=== PATIENT | female | born 1990 | race Caucasian/White ===

== ENCOUNTER 2019-02-18 23:41 | Emergency (ER) | payer BC ==
[~2019-02-18] VITALS: Ht 165 cm; Wt 92.0 kg
[2019-02-18] MEDS ORDERED: ESCI10TA55 PO (23:57)
--- NOTE | 2019-02-19 00:11 | ED Abdominal Pain ---
General Chief Complaint: Abdominal/GI Problems Stated Complaint: RIGHT SIDE PAIN Nursing Triage Note: Pt ambulates to RM 7 with c/o RLQ pain x 3 days. Pt reports nausea, no vomiting. Pt denies fever/chills. Pt states she hasn't taken any meds to relief the pain. Sepsis Screen: No Definite Risk Source of Information: Patient, Other (fiance) Exam Limitations: No Limitations History of Present Illness Date Seen by Provider: Feb 19, 2019 Time Seen by Provider: 00:01 Initial Comments Patient presents to ER by private conveyance with chief complaint of pain in the right flank starting on Friday, 4 days ago. [facility] lab and ultrasound but she has not received results yet. She has no history of abdominal surgeries. She's having nausea and some vomiting earlier in the week but no vomiting now just nausea. She has 6 out of 10 pain constant right lower quadrant and right flank. No dysuria or hematuria. No history of kidney stones. No trauma. Not on control. Does not remember doing anything particular strenuous that caused the pain. It is worse with stretching or bending. Allergies and Home Medications Allergies Coded Allergies: cephalexin (Verified Allergy, Unknown, 02/19/19) Patient Home Medication List Home Medication List Reviewed: Yes Review of Systems Review of Systems Constitutional: No chills, No diaphoresis, No fever EENTM: No Blurred Vision, No Double Vision Respiratory: Denies Cough, Denies Shortness of Air Cardiovascular: Denies Chest Pain, Denies Edema Gastrointestinal: See HPI; Denies Abdomen Distended; Abdominal Pain; Denies Constipated; Diarrhea, Nausea, Vomiting (earlier in week) Genitourinary: Denies Burning, Denies Discharge, Denies Drainage; Flank Pain Musculoskeletal: No back pain, No joint pain Skin: No pruritus, No rash All Other Systems Reviewed Negative Unless Noted: Yes Past Unepdyu-Vwgqby-Uscqkd Hx Patient Social History Alcohol Use: Denies Use Recreational Drug Use: No Smoking Status: Never a Smoker 2nd Hand Smoke Exposure: No Recent Foreign Travel: No Contact w/Someone Who Travel: No Recent Infectious Disease Expo: No Recent Hopitalizations: No Physical Abuse: No Sexual Abuse: No Mistreated: No Fear: No Seasonal Allergies Seasonal Allergies: No Past Medical History Surgeries: No Respiratory: No Cardiac: No Neurological: No Genitourinary: No Gastrointestinal: No Musculoskeletal: No Endocrine: No HEENT: No Cancer: No Psychosocial: Yes Anxiety, Depression Integumentary: No Physical Exam Vital Signs Vital Signs - First Documented 02/18/19 23:48 Temp 36.4 Pulse 82 Resp 20 B/P (MAP) 116/84 (95) Pulse Ox 100 O2 Delivery Room Air Capillary Refill : Less Than 3 Seconds Height/Weight/BMI Height: '" Weight: lbs. oz. kg; 33.00 BMI Method: General Appearance: WD/WN, mild distress HEENT: PERRL/EOMI, pharynx normal Neck: full range of motion, normal inspection Respiratory: lungs clear, normal breath sounds, no respiratory distress, no accessory muscle use Cardiovascular: normal peripheral pulses, regular rate, rhythm, no edema Peripheral Pulses: 2+ Radial Pulses (R), 2+ Radial Pulses (L) Gastrointestinal: normal bowel sounds, soft; No rebound; tenderness (over the lower right flank.), other (no tenderness over McBurney's point. No Rovsing sign, psoas sign or other mesenteric signs.) Neurologic/Psychiatric: alert, normal mood/affect, oriented x 3 Skin: normal color, warm/dry Progress/Results/Core Measures Results/Orders Lab Results Laboratory Tests Test 02/18/19 23:58 02/19/19 00:50 Range/Units White Blood Count 9.1 4.3-11.0 10^3/uL Red Blood Count 4.69 4.35-5.85 10^6/uL Hemoglobin 13.3 11.5-16.0 G/DL Hematocrit 40 35-52 % Mean Corpuscular Volume 86 80-99 FL Mean Corpuscular Hemoglobin 28 25-34 PG Mean Corpuscular Hemoglobin Concent 33 32-36 G/DL Red Cell Distribution Width 12.7 10.0-14.5 % Platelet Count 268 130-400 10^3/uL Mean Platelet Volume 9.6 7.4-10.4 FL Neutrophils (%) (Auto) 63 42-75 % Lymphocytes (%) (Auto) 32 12-44 % Monocytes (%) (Auto) 5 0-12 % Eosinophils (%) (Auto) 1 0-10 % Basophils (%) (Auto) 0 0-10 % Neutrophils # (Auto) 5.7 1.8-7.8 X 10^3 Lymphocytes # (Auto) 2.9 1.0-4.0 X 10^3 Monocytes # (Auto) 0.4 0.0-1.0 X 10^3 Eosinophils # (Auto) 0.1 0.0-0.3 10^3/uL Basophils # (Auto) 0.0 0.0-0.1 10^3/uL Sodium Level 140 135-145 MMOL/L Potassium Level 3.5 L 3.6-5.0 MMOL/L Chloride Level 104 98-107 MMOL/L Carbon Dioxide Level 24 21-32 MMOL/L Anion Gap 12 5-14 MMOL/L Blood Urea Nitrogen 9 7-18 MG/DL Creatinine 0.83 0.60-1.30 MG/DL Estimat Glomerular Filtration Rate > 60 BUN/Creatinine Ratio 11 Glucose Level 75 70-105 MG/DL Calcium Level 9.5 8.5-10.1 MG/DL Corrected Calcium 9.2 8.5-10.1 MG/DL Total Bilirubin 0.4 0.1-1.0 MG/DL Aspartate Amino Transf (AST/SGOT) 27 5-34 U/L Alanine Aminotransferase (ALT/SGPT) 41 0-55 U/L Alkaline Phosphatase 129 40-136 U/L C-Reactive Protein High Sensitivity 1.11 H 0.00-0.50 MG/DL Total Protein 8.1 6.4-8.2 GM/DL Albumin 4.4 3.2-4.5 GM/DL Urine Color YELLOW Urine Clarity SL CLOUDY Urine pH 6.0 5-9 Urine Specific [place] >=1.030 1.016-1.022 Urine Protein TRACE NEGATIVE Urine Glucose (UA) NEGATIVE NEGATIVE Urine Ketones NEGATIVE NEGATIVE Urine Nitrite NEGATIVE NEGATIVE Urine Bilirubin NEGATIVE NEGATIVE Urine Urobilinogen 0.2 < = 1.0 MG/DL Urine Leukocyte Esterase NEGATIVE NEGATIVE Urine RBC (Auto) 3+ H NEGATIVE Urine RBC TNTC H /HPF Urine WBC 0-2 /HPF Urine Squamous Epithelial Cells 2-5 /HPF Urine Crystals NONE /LPF Urine Bacteria FEW H /HPF Urine Casts NONE /LPF Urine Mucus NEGATIVE /LPF Urine Culture Indicated NO My Orders Orders - SHAWNA JUAREZ Ua Culture If Indicated (02/18/19 23:42) Urine Bedside (02/18/19 23:42) Ketorolac Injection (Toradol Injection) (02/19/19 00:15) Ondansetron Injection (Zofran Injectio (02/19/19 00:15) Cbc With Automated Diff (02/19/19 00:11) Comprehensive Metabolic Panel (02/19/19 00:11) Hs C Reactive Protein (02/19/19 00:11) Ed Iv/Invasive Line Start (02/19/19 00:14) Lactated Ringers (Lr 1000 Ml Iv Solution (02/19/19 00:14) Medications Given in ED Current Medications Medications Dose Ordered Sig/Brittany Route Start Time Stop Time Status Last Admin Dose Admin Ketorolac Tromethamine 30 mg ONCE ONCE IVP 02/19/19 00:15 02/19/19 00:16 DC 02/19/19 00:25 30 MG Lactated Ringer's 1,000 ml @ 0 mls/hr Q0M ONCE IV 02/19/19 00:14 02/19/19 00:16 DC 02/19/19 00:24 0 MLS/HR Ondansetron HCl 4 mg ONCE ONCE IVP 02/19/19 00:15 02/19/19 00:16 DC 02/19/19 00:25 4 MG Vital Signs/I&O 02/18/19 23:48 Temp 36.4 Pulse 82 Resp 20 B/P (MAP) 116/84 (95) Pulse Ox 100 O2 Delivery Room Air Blood Pressure Mean: 95 POS Progress Progress Note #1: Time: 00:14 Progress Note She's having abdominal wall pain but given her nausea and with history of vomiting, diarrhea or sick contacts at work possible she has viral gastroenteritis and colitis. She has aseptic vital signs and a benign abdominal exam. Plan to check some basic labs and urinalysis to rule out kidney stones or more significant bacterial infection. We've her some Toradol and Zofran as well as a liter of lactated Ringer's. Progress Note #2: Time: 01:31 Progress Note Pain is significantly improved. She is still having some indigestion so we'll g henry her some Pepcid. She denies any nausea. Plan for her to follow-up with primary care team today and keep the results of her ultrasound and labs from earlier in the week. If she still having significant symptoms by Friday then she needs to follow-up with primary care. Return precautions were given. Departure Impression Primary Impression: Gastroenteritis and colitis, viral Additional Impression: Acute right flank pain Disposition: HOME, SELF-CARE Condition: Stable Departure-Patient Inst. Decision time for Depature: 01:33 Referrals: [facility] (PCP/Family) Primary Care Physician Patient Instructions: Viral Gastroenteritis, Adult (DC) Add. Discharge Instructions: If you have any nausea take Zofran 1 tablet every 6 hours as needed. If you are having pain in your belly you can try an antacid such as Tums or Rolaids. You can also try Pepcid/Tagamet/Zantac once or twice a day. Today contact your primary care office during business hours and look for the results of your blood work and ultrasound performed earlier in the week. If you are still having symptoms on Friday then please follow-up with primary care for further workup. If you have intractable pain nausea vomiting or other worrisome symptoms please return to the ER for further management. All discharge instructions reviewed with patient and/or family. Voiced understanding. Scripts Ondansetron (Ondansetron Odt) 4 Mg Tab.rapdis 4 MG PO Q6H PRN for NAUSEA/VOMITING, #8 TAB 0 Refills Prov: SHAWNA JUAREZ 02/19/19 SHAWNA JUAREZ Feb 19, 2019 00:11 POS
[2019-02-19] MEDS ORDERED: LACTATED RINGERS 1,000 ML IV ONE (00:14)
[2019-02-19] MEDS ORDERED: ONDANSETRON 4 MG/2 ML (SDV) Z0FRAN IVP ONE (00:15)
[2019-02-19] MEDS ORDERED: KETOROLAC 30 MG/ML VIAL IVP ONE (00:15)
[2019-02-19 00:32] LABS: BASOPHILS % (AUTO) 0 % (0-10); EOSINOPHILS # (AUTO) 0.1 10^3/uL (0.0-0.3); EOSINOPHILS % (AUTO) 1 % (0-10); HEMATOCRIT 40 % (35-52); HEMOGLOBIN 13.3 G/DL (11.5-16.0); LYMPHOCYTES # (AUTO) 2.9 X 10^3 (1.0-4.0); LYMPHOCYTES % (AUTO) 32 % (12-44); MEAN CORPUSCULAR HEMOGLOBIN 28 PG (25-34); MEAN CORPUSCULAR HGB CONC 33 G/DL (32-36); MEAN CORPUSCULAR VOLUME 86 FL (80-99); MEAN PLATELET VOLUME 9.6 FL (7.4-10.4); MONOCYTES # (AUTO) 0.4 X 10^3 (0.0-1.0); MONOCYTES % (AUTO) 5 % (0-12); NEUTROPHILS # (AUTO) 5.7 X 10^3 (1.8-7.8); NEUTROPHILS % (AUTO) 63 % (42-75); PLATELET COUNT 268 10^3/uL (130-400); RED CELL DISTRIBUTION WIDTH 12.7 % (10.0-14.5); WHITE BLOOD COUNT 9.1 10^3/uL (4.3-11.0)
[2019-02-19 00:46] LABS: ALANINE AMINOTRANSFERASE 41 U/L (0-55); ALBUMIN 4.4 GM/DL (3.2-4.5); ALKALINE PHOSPHATASE 129 U/L (40-136); BILIRUBIN,TOTAL 0.4 MG/DL (0.1-1.0); BUN/CREATININE RATIO 11; CALCIUM 9.5 MG/DL (8.5-10.1); CARBON DIOXIDE 24 MMOL/L (21-32); CHLORIDE 104 MMOL/L (98-107); CREATININE SERUM 0.83 MG/DL (0.60-1.30); GFR ESTIMATED > 60; GLUCOSE 75 MG/DL (70-105); POTASSIUM 3.5 MMOL/L (3.6-5.0); SODIUM 140 MMOL/L (135-145); TOTAL PROTEIN 8.1 GM/DL (6.4-8.2)
[2019-02-19 00:56] LABS: BILIRUBIN,URINE NEGATIVE (NEGATIVE); CLARITY,URINE SL CLOUDY; COLOR,URINE YELLOW; GLUCOSE, URINE (UA) NEGATIVE (NEGATIVE); KETONES,URINE NEGATIVE (NEGATIVE); LEUKOCYTE ESTERASE ,URINE NEGATIVE (NEGATIVE); NITRITE,URINE NEGATIVE (NEGATIVE); PROTEIN,URINE TRACE (NEGATIVE)
[2019-02-19 01:23] LABS: BACTERIA,URINE FEW /HPF; RBC,URINE TNTC /HPF; WBC,URINE 0-2 /HPF
[2019-02-19] MEDS ORDERED: FAMOTIDINE 20 MG (PEPCID) TABLET PO ONE (01:30)
[2019-02-19] MEDS ORDERED: ONDA4TAB11 PO (01:34)
[2019-02-19 01:53] VITALS: BP 116/84
--- OUTSIDE RECORDS SUMMARY | 2019-03-17 04:18 | XMS REPORT ---
Author Author Madhuri SANDHU Organization [facility] Address [address] [place] [address] Care Team Providers Care Instrument Assembly Supervisor Name Role Phone CHAYO SANDHU Unavailable PROBLEMS Unknown Problems ALLERGIES Substance Reaction Event Type Date Status Keflex hives Drug Allergy July, Active ENCOUNTERS Encounter Location Date Diagnosis [facility] [id number] [place] [address] July, Cystitis N30.90 ; Fluid level behind tym panic membrane of left ear H65.92 ; Impacted cerumen of left ear H61.22 and Dizziness R42 [facility] [address] [id number] [address] [place] [phone] Feb, [facility] [address] [id number] [place] [address] Feb, Other fatigue R53.83 [facility] [address] [id number] [address] [place] [phone] Jun, [facility] [address] [id number] [address] [place] [phone] Jun, [facility] [address] [facility] [place] [id number] [place] [id number] Mar, [facility] [address] [facility] [id number] [place] [id number] Mar, [facility] [address] [facility] [place] [id number] [place] [id number] Mar, [facility] [address] [facility] [id number] [address] [place] [phone] Jan, [facility] [address] [id number] [address] [place] [phone] Jan, IMMUNIZATIONS No Known Immunizations SOCIAL HISTORY Never Assessed REASON FOR VISIT Dizziness-Patient states that she's had a migraine and dizziness x3 days. Angeline bullock also states that she is having flank pain and she also states she works in the [employer] and it is hot in that area. Patient states she has been having to urinate more frequently. [place] PEREZ PLAN OF CARE Activity Details Follow Up prn Reason: VITAL SIGNS Height 5'4" in 2017-08-08 Weight 174.2 lbs 2017-08-08 Temperature 99.3 degrees Fahrenheit 2017-08-08 Heart Rate 109 bpm 2017-08-08 Respiratory Rate 18 2017-08-08 Oximetry 98 % 2017-08-08 BMI 29.90 kg/m2 2017-08-08 Blood pressure systolic 112 mmHg 2017-08-08 Blood pressure diastolic 82 mmHg 2017-08-08 MEDICATIONS Medication Instructions Dosage Frequency Start Date End Date Duration S tatus Depo-Provera 150 MG/ML Intramuscular every 3 months 1 ml Not-Taking Fluticasone Propionate 50 MCG/ACT Nasally Once a day 1 spray in each nostril 24h July, 30 day(s) Active Fluoxetine HCl 20 MG Orally Once a day 1 capsule 24h Active Abilify 2 MG Orally Once a day 1 tablet 24h Active Trazodone HCl 50 mg Orally Once a day at bedtime PRN 1 tablet Active Bactrim DS 800-160 MG Orally Twice a day 1 tablet 12h 08 August, 2 018 July, 05 days Active RESULTS No Results PROCEDURES Procedure Date Ordered Result Body Site URINE CULTURE/COLONY COUNT August 08, 2017 URINALYSIS, AUTO, W/O SCOPE August 08, 2017 INSTRUCTIONS MEDICATIONS ADMINISTERED No Known Medications MEDICAL (GENERAL) HISTORY Type Description Date Medical History depession Medical History anxiety Medical History seasonal allergies Medical History B12 deficiency Hospitalization History pneumonia 1994,,
--- OUTSIDE RECORDS SUMMARY | 2019-03-17 04:18 | XMS REPORT ---
Author Madhuri Murillo Organization [facility] Address [address] [place], [place] [id number] Care Team Providers Care Application Development Director Name Role Phone Carlos Zhang PCP Allergies and Adverse Reactions Name Reaction Notes Keflex Plan of Treatment Not available. Medications Active Name Start Date Estimated Completion Date SIG Co mments ibuprofen 200 mg oral capsule ta ke 1 capsule (200 mg) by oral route every 6 hours as needed aripiprazole 2 mg oral tablet take 1 tabl et by oral route daily Prescribed by James Rasheed trazodone 50 mg oral tablet take 1 tablet (50 mg) by oral route once daily at bedtime Prescribed by aJmes Rasheed Problem List Not available. Vital Signs Date Time BP-Sys(mm[Hg] BP-Darlyn(mm[Hg]) HR(bpm) RR(rpm) Temp WT HT HC BMI BSA BMI Percentile O2 Sat(%) 09/27/2017 9:10:00 AM 124 mmHg 82 mmHg 81 bpm 18 rpm 99.1 F 174.5 lbs 65 in 29.038 kg/m 1.9053 m 98 % Social History Name Description Comments Tobacco Never smoker Alcohol Use - Rare Engaged History of Procedures Not available. Results Summary Not available. History Of Immunizations Not available. History of Past Illness Name Date of Onset Comments Left shoulder pain Sep 27 2017 9:14AM Nausea and vomiting Sep 27 2017 9:14AM Heartburn Sep 27 2017 9:14AM Payers Not available. History of Encounters Visit Date Visit Type Provider 09/27/2017 Office visit Carlos Zhang NP
--- OUTSIDE RECORDS SUMMARY | 2019-03-17 04:18 | XMS REPORT ---
Author Author Madhuri George [facility] Address [address] [place], [place] [id number] Care Team Providers Care Finisher Wallboard And Plasterboard Name Role Phone Corine George PCP Allergies and Adverse Reactions Name Reaction Notes Keflex Plan of Treatment Not available. Medications Active Name Start Date Estimated Completion Date SIG Co mments ibuprofen 200 mg oral capsule ta ke 1 capsule (200 mg) by oral route every 6 hours as needed escitalopram oxalate 20 mg oral tablet take 1 tablet (20 mg) by oral route once daily cyclobenzaprine 10 mg oral tablet 06/17/2018 06/24/2018 take 1 tablet (10 mg) by oral route times per day at bedtime Discontinued Name Start Date Discontinued Date SIG Comments aripiprazole 2 mg oral tablet 06/17/2018 take 1 tabl et by oral route daily trazodone 50 mg oral tablet 06/17/2018 take 1 tablet (50 mg) by oral route once daily at bedtime Problem List Not available. Vital Signs Date Time BP-Sys(mm[Hg] BP-Darlyn(mm[Hg]) HR(bpm) RR(rpm) Temp WT HT HC BMI BSA BMI Percentile O2 Sat(%) 06/17/2018 7:29:00 PM 118 mmHg 89 mmHg 95 bpm 20 rpm 98.6 F 181.375 lbs 65 i n 30.1821 kg/m 1.9424 m 97 % 09/27/2017 9:10:00 AM 124 mmHg 82 mmHg 81 bpm 18 rpm 99.1 F 174.5 lbs 65 in 29.04 kg/m2 1.91 m2 98 % Social History Name Description Comments Tobacco Never smoker Alcohol Use - Rare Engaged History of Procedures Not available. Results Summary Not available. History Of Immunizations Not available. History of Past Illness Name Date of Onset Comments Left shoulder pain Sep 27 2017 9:14AM Nausea and vomiting Sep 27 2017 9:14AM Heartburn Sep 27 2017 9:14AM Anxiety Jun 17 2018 7:39PM Muscle strain Jun 17 2018 7:39PM Payers Insurance Name Company Name Plan Name Plan Number Policy Number Luke [place] Group Number Start Date [facility] [id number] [facility] [id number] N/A History of Encounters Visit Date Visit Type Provider 06/17/2018 Office visit Corine YO RN 03/20/2018 [facility] Francy Umana MD 09/27/2017 Office visit Carlos Zhang NP
--- OUTSIDE RECORDS SUMMARY | 2019-03-17 04:18 | XMS REPORT | Continuity of Care Document ---
Author Organization Unknown Address Unknown Phone Unavailable Allergies Active Description Code Type Severity Reaction Onset Reported/Identified Relationship to Patient Clinical Status Yes Keflex Drug Allergy 01/18/2012 Yes cephalexin [id number] Drug Allerg y Unknown N/A 02/19/2019 Medications There is no data. Problems Date Dx Coded Attending Type Code Diagnosis Diagnosed By 01/18/2012 787.01 HARRIETT SEA WITH VOMITING 01/18/2012 789.00 ABD OMINAL PAIN UNSPECIFIED SITE 01/18/2012 787.01 HARRIETT SEA WITH VOMITING 01/18/2012 789.00 ABD OMINAL PAIN UNSPECIFIED SITE 01/18/2012 787.01 HARRIETT SEA WITH VOMITING 01/18/2012 789.00 ABD OMINAL PAIN UNSPECIFIED SITE 03/30/2012 564.00 CON STIPATION 03/30/2012 564.00 CON STIPATION 02/19/2019 SHAWNA JUAREZ MD Ot A08. 4 VIRAL INTESTINAL INFECTION, UNSPECIFIED 02/19/2019 SHAWNA JUAREZ MD Ot F32. 9 MAJOR DEPRESSIVE DISORDER, SINGLE EPISOD 02/19/2019 SHAWNA JUAREZ MD Ot F41. 9 ANXIETY DISORDER, UNSPECIFIED 02/19/2019 SHAWNA JUAREZ MD Ot R10. 9 UNSPECIFIED ABDOMINAL PAIN 02/19/2019 SHAWNA JUAREZ MD Ot Z88. 1 ALLERGY STATUS TO OTHER ANTIBIOTIC AGENT Procedures Code Description [place] [address] UA L EDEL DIP 01/18/2012 48601 KUB 01/22/2012 47814 UA L EDEL DIP 04/10/[address] A BDOMEN & PELVIS W/ & W/O CONTRAST 04/14/2012 58346 CMP 04/15/2012 04926 CBC 04/15/2012 Results Test Result Range TSH - 03/07/17 11:09 TSH 1.51 mIU/L NRG VITAMIN B12 - 03/07/17 11:09 VITAMIN B12 454 pg/mL 200-1100 CULTURE, URINE - 08/08/17 16:43 CULTURE, URINE, ROUTINE SEE NOTE NRG CULTURE, GENITAL - 07/14/18 16:06 CULTURE, GENITAL SEE NOTE NRG LIPASE - 02/16/19 16:15 LIPASE 17 U/L 7-60 AMYLASE - 02/16/19 16:15 AMYLASE 32 U/L 21-101 TSH - 02/16/19 16:15 TSH 1.83 mIU/L NRG Complete blood count (CBC) with automate d white blood cell (WBC) differential - 02/18/19 23:58 Blood leukocytes automated count (number/volume) 9.1 10*3/uL 4.3-11.0 Blood erythrocytes automated count (number/volume) 4.69 10*6/uL 4.35-5.85 Venous blood hemoglobin measurement (mass/volume) 13.3 g/dL 11.5-16.0 Blood hematocrit (volume fraction) 40 % 35-52 Automated erythrocyte mean corpuscular volume 86 [ foz_us] 80-99 Automated erythrocyte mean corpuscular h emoglobin (mass per erythrocyte) 28 pg 25-34 Automated erythrocyte mean corpuscular h emoglobin concentration measurement (mass/volume) 33 g/dL 32-36 Automated erythrocyte distribution width ratio 12. 7 % 10.0- 14.5 Automated blood platelet count (count/volume) 268 10*3/uL 130-400 Automated blood platelet mean volume measurement 9.6 [foz_us] 7.4-10.4 Automated blood neutrophils/100 leukocytes 63 % 42-75 Automated blood lymphocytes/100 leukocytes 32 % 12-44 Blood monocytes/100 leukocytes 5 % 0-12 Automated blood eosinophils/100 leukocytes 1 % 0-10 Automated blood basophils/100 leukocytes 0 % 0-10 Blood neutrophils automated count (number/volume) 5.7 10*3 1.8-7.8 Blood lymphocytes automated count (number/volume) 2.9 10*3 1.0-4.0 Blood monocytes automated count (number/volume) 0. 4 10*3 0.0-1.0 Automated eosinophil count 0.1 10*3/uL 0 .0-0.3 Automated blood basophil count (count/volume) 0.0 10*3/uL 0.0-0.1 Comprehensive metabolic panel - 02/18/19 23:58 Serum or plasma sodium measurement (moles/volume) 140 mmol/L 135-145 Serum or plasma potassium measurement (moles/volume) 3.5 mmol/L 3.6-5.0 Serum or plasma chloride measurement (moles/volume) 104 mmol/L 98-107 Carbon dioxide 24 mmol/L 21-32 Serum or plasma anion gap determination (moles/volume) 12 mmol/L 5-14 Serum or plasma urea nitrogen measurement (mass/volume ) 9 mg/dL 7-18 Serum or plasma creatinine measurement (mass/volume) 0.83 mg/dL 0.60-1.30 Serum or plasma urea nitrogen/creatinine mass ratio 11 NRG Serum or plasma creatinine measurement w ith calculation of estimated glomerular filtration rate > NRG Serum or plasma glucose measurement (mass/volume) 75 mg/dL 70-105 Serum or plasma calcium measurement (mass/volume) 9.5 mg/dL 8.5-10.1 Serum or plasma total bilirubin measurement (mass/volu me) 0.4 mg/dL 0.1-1.0 Serum or plasma alkaline phosphatase zulma surement (enzymatic activity/volume) 129 U/L 40-136 Serum or plasma aspartate aminotransfera se measurement (enzymatic activity/volume) 27 U/L 5-34 Serum or plasma alanine aminotransferase measurement (enzymatic activity/volume) 41 U/L 0-55 Serum or plasma protein measurement (mass/volume) 8.1 g/dL 6.4-8.2 Serum or plasma albumin measurement (mass/volume) 4.4 g/dL 3.2-4.5 CALCIUM CORRECTED 9.2 mg/dL 8.5-10.1 Serum or plasma C reactive protein measu rement (mass/volume) - 02/18/19 23:58 Serum or plasma C reactive protein measurement (mass/v olume) 1.11 mg/dL 0.00-0.50 Complete urinalysis with reflex to cultu re - 02/19/19 00:50 Urine color determination YELLOW NRG Urine clarity determination SL CLOUDY N RG Urine pH measurement by test strip 6.0 5-9 Specific gravity of urine by test strip >= 1.016-1.022 Urine protein assay by test strip, semi-quantitative TRACE NEGATIVE Urine glucose detection by automated test strip NE GATIVE NEGATIVE Erythrocytes detection in urine sediment by light micr oscopy 3+ NEGATIVE Urine ketones detection by automated test strip NE GATIVE NEGATIVE Urine nitrite detection by test strip NEGATIVE NEGATIVE Urine total bilirubin detection by test strip NEGA TIVE NEGATIVE Urine urobilinogen measurement by automated test strip (mass/volume) 0.2 mg/dL < = 1.0 Urine leukocyte esterase detection by dipstick NEG ATIVE NEGATIVE Automated urine sediment erythrocyte cou nt by microscopy (number/high power field) TNTC NRG Automated urine sediment leukocyte count by microscopy (number/high power field) [HPF] NRG Bacteria detection in urine sediment by light microsco py FEW NRG Squamous epithelial cells detection in u rine sediment by light microscopy 2-5 NRG Crystals detection in urine sediment by light microsco py NONE NRG Casts detection in urine sediment by light microscopy NONE NRG Mucus detection in urine sediment by light microscopy NEGATIVE NRG Complete urinalysis with reflex to culture NO NRG Encounters ACCT No. Visit Date/Time Discharge Status Pt. Type Provider Facility Loc./Unit Complaint [id number] 10/05/2018 14:20:00 10/05/2018 23:59: 59 CLS Outpatient ASHTYN MARTINEZ LAC [id number] 02/16/2019 16:00:00 Document Registration [id number] 07/14/2018 15:40:00 Document Registration [id number] 08/08/2017 14:00:00 Document Registration [id number] 03/07/2017 10:20:00 Document Registration [id number] 04/15/2012 16:09:00 04/15/2012 23:59: 59 CLS Outpatient [id number] 04/10/2012 09:28:00 04/10/2012 23:59: 59 CLS Outpatient [id number] 01/18/2012 11:03:00 01/18/2012 23:59:5 9 CLS Outpatient [id number] 10/27/2018 15:40:59 10/27/2018 23:59: 59 CLS Outpatient Francy Umana [id number] 07/30/2018 18:53:21 07/30/2018 23:59: 59 CLS Outpatient Katerina Alvarez [id number] 06/17/2018 20:27:53 06/17/2018 23:59: 59 CLS Outpatient Katerina Alvarez [id number] 05/11/2018 16:24:09 05/11/2018 23:59: 59 CLS Outpatient Francy Umana [id number] 09/27/2017 09:55:27 09/27/2017 23:59: 59 CLS Outpatient Carlos Zhang [id number] 03/15/2019 12:10:35 ACT Outpatient Darius Gu [id number] 02/18/2019 23:43:00 019 01:47:00 DIS Emergency LARRY PADILLA, SHAWNA [facility] ER RIGHT SIDE PAIN
--- OUTSIDE RECORDS SUMMARY | 2019-03-17 04:18 | XMS REPORT ---
Author Author Madhuri MARTELL Organization [facility] Address [address] [place] [address] Care Team Providers Care Outside Installer Apprentice Name Role Phone PIPO MARTELL Unavailable PROBLEMS Unknown Problems ALLERGIES No Information ENCOUNTERS Encounter Location Date Diagnosis [facility] [address] [id number] [place] [address] July, Cystitis N30.90 ; Fluid level behind tym panic membrane of left ear H65.92 ; Impacted cerumen of left ear H61.22 and Dizziness R42 [place] [address] [place] [id number] [address] [place] [phone] Feb, [facility] [address] [id number] [place] [address] Feb, Other fatigue R53.83 [place] [address] [place] [id number] [address] [place] [phone] Jun, [facility] [address] [place] [id number] [address] [place] [phone] Jun, [facility] [address] [facility] [id number] [place] [phone] Mar, [facility] [address] [facility] [id number] [place] [id number] Mar, [facility] [address] [facility] [id number] [place] [phone] Mar, [facility] [address] [facility] [id number] [address] [place] [phone] Jan, [facility] [address] [place] [address] [id number] [address] [place] [phone] Jan, IMMUNIZATIONS No Known Immunizations SOCIAL HISTORY Never Assessed REASON FOR VISIT Requests return call PLAN OF CARE VITAL SIGNS MEDICATIONS Medication Instructions Dosage Frequency Start Date End Date Duration S tatus Abilify 2 MG Orally Once a day 1 tablet 24h Active Trazodone HCl 50 mg Orally Once a day at bedtime PRN 1 tablet Active Depo-Provera 150 MG/ML Intramuscular every 3 months 1 ml Active Fluoxetine HCl 20 MG Orally Once a day 1 capsule 24h Active RESULTS No Results PROCEDURES No Known procedures INSTRUCTIONS MEDICATIONS ADMINISTERED No Known Medications MEDICAL (GENERAL) HISTORY Type Description Date Medical History depession Medical History anxiety Medical History seasonal allergies Medical History B12 deficiency Hospitalization History pneumonia 1994,,
--- OUTSIDE RECORDS SUMMARY | 2019-03-17 04:18 | XMS REPORT ---
Author Madhuri Spring [facility] Address [address] [place], [place] [address] Care Team Providers Care Reed Press Feeder Name Role Phone Corine George PCP Allergies [...] once daily cyclobenzaprine 10 mg oral tablet 07/30/2018 08/06/2018 take 1 tablet (10 mg) by oral [...] HC BMI BSA BMI Percentile O2 Sat(%) 07/30/2018 5:53:00 PM 106 mmHg 68 mmHg 95 bpm 18 rpm 99 F 189.375 lbs 65 i n 31.5133 kg/m 1.9848 m 100 % 06/17/2018 7:29:00 PM 118 mmHg 89 mmHg 95 bpm 20 rpm 98.6 F 181.375 lbs 65 i n 30.18 kg/m2 1.94 m2 97 % 09/27/2017 9:10:00 AM 124 mmHg [...] 7:39PM Muscle strain Jun 17 2018 7:39PM Elevated blood pressure reading Jul 30 2018 5:59PM Anxiety Jul 30 2018 5:59PM Payers Insurance Name Company Name Plan Name Plan Number Policy Number Luke cy Group Number Start Date [facility] [id number] [facility] [id number] N/A History of Encounters Visit Date Visit Type Provider 07/30/2018 Office visit Corine YO RN 06/17/2018 Office visit Corine YO RN 03/20/2018 Hospital Francy Umana MD 09/27/2017 Office visit Carlos Zhang NP
--- OUTSIDE RECORDS SUMMARY | 2019-03-17 04:18 | XMS REPORT ---
Author Author Madhuri Kingston Doctor Organization [facility] Address Unknown Phone Unavailable Care Team Providers Care Activities Concierge Name Role Phone Migration, Doctor Unavailable Unavailable PROBLEMS Unknown Problems ALLERGIES No Information ENCOUNTERS Encounter Location Date Diagnosis [facility] [address] [id number] [place] [address] July, [facility] [address] [id number] [place] [address] Jun, Acute flank pain R10.9 ; Vaginal dischar ge N89.8 and Paraspinal muscle spasm M62.830 [facility] [address] [id number] [place] [address] Apr, Dental infection K04.7 and Non-intractab le vomiting with nausea, unspecified vomiting type R11.2 [facility] [address] [id number] [place] [address] July, Cystitis N30.90 ; Fluid level behind tym panic membrane of left ear H65.92 ; Impacted cerumen of left ear H61.22 and Dizziness R42 [place] [id number] [place] [id number] [address] [place] [phone] Feb, [facility] [address] [id number] [place] [address] Feb, Other fatigue R53.83 [facility] [address] [place] [id number] [address] [place] [phone] Jun, [facility] [address] [place] [address] [id number] [address] [place] [phone] Jun, [facility] [address] [facility] [id number] [place], [place] [phone] Mar, [facility] [address] [id number] [place], [place] [phone] Mar, [facility] [address] [id number] [place] S [id number] Mar, [facility] [address] [facility] [id number] [address] [address] Jan, [facility] [address] [facility] [id number] [address] [place] [address] Jan, IMMUNIZATIONS No Known Immunizations SOCIAL HISTORY Never Assessed REASON FOR VISIT [facility] PLAN OF CARE VITAL SIGNS MEDICATIONS Unknown Medications RESULTS No Results PROCEDURES No Known procedures INSTRUCTIONS MEDICATIONS ADMINISTERED No Known Medications MEDICAL (GENERAL) HISTORY Type Description Date Medical History depession Medical History anxiety Medical History seasonal allergies Medical History B12 deficiency Medical History Bipolar depression Surgical History No know Surgical history Hospitalization History pneumonia 1994,,
--- OUTSIDE RECORDS SUMMARY | 2019-03-17 04:18 | XMS REPORT ---
Author Author Madhuri MARTELL Organization [facility] Address [address] [place] [address] Care Team Providers Care Cow Puncher Name Role Phone PIPO MARTELL Unavailable PROBLEMS Unknown Problems ALLERGIES Substance Reaction Event Type Date Status Keflex hives Drug Allergy Feb, Active ENCOUNTERS Encounter Location Date [facility] [address] [id number] [place] [address] July, Cystitis N30.90 ; Fluid level behind tym panic membrane of left ear H65.92 ; Impacted cerumen of left ear H61.22 and Dizziness R42 [facility] [address] [place] [id number] [address] [place] [phone] Feb, [facility] [address] [id number] [place] [address] Feb, Other fatigue R53.83 [facility] [address] [place] [id number] [address] [place] [phone] Jun, [facility] [address] [facility] [id number] [address] [place] [phone] Jun, [facility] [address] [id number] [place], [place] [phone] Mar, [facility] [address] [id number] [place] [phone] Mar, [facility] [address] [facility] [id number] [place] [id number] Mar, [facility] [address] [facility] [id number] [address] [place] [phone] Jan, [facility] [address] [facility] [id number] [address] [place] [phone] Jan, IMMUNIZATIONS No Known Immunizations SOCIAL HISTORY Never Assessed REASON FOR VISIT Fatigue-depression screen completed. [email or web address], ANA PLAN OF CARE Activity Details Follow Up prn Reason: VITAL SIGNS Height 5'4" in 2017-03-07 Weight 170.9 lbs 2017-03-07 Temperature 98.7 degrees Fahrenheit 2017-03-07 Heart Rate 110 bpm 2017-03-07 Respiratory Rate 18 2017-03-07 BMI 29.33 kg/m2 2017-03-07 Blood pressure systolic 102 mmHg 2017-03-07 Blood pressure diastolic 60 mmHg 2017-03-07 MEDICATIONS Medication Instructions Dosage Frequency Start Date End Date Duration S tatus Abilify 10 MG Orally Once a day 1 tablet 24h Active Fluoxetine HCl 40 MG Orally Once a day 1 capsule 24h Active RESULTS No Results PROCEDURES Procedure Date Ordered Result Body Site COMPLETE CBC W/AUTO DIFF WBC Mar 07, 2017 COMPREHEN METABOLIC PANEL Mar 07, 2017 VITAMIN B-12 Mar 07, 2017 ASSAY THYROID STIM HORMONE Mar 07, 2017 ASSAY OF VITAMIN D Mar 07, 2017 INSTRUCTIONS MEDICATIONS ADMINISTERED No Known Medications MEDICAL (GENERAL) HISTORY Type Description Date Medical History depession Medical History anxiety Medical History seasonal allergies Medical History B12 deficiency Hospitalization History pneumonia 1994,,
--- OUTSIDE RECORDS SUMMARY | 2019-03-17 04:18 | XMS REPORT ---
Author Author Madhuri Kingston Doctor Organization [facility] Address Unknown Phone Unavailable Care Team Providers Care Shake Splitter Name Role Phone Migration, Doctor Unavailable Unavailable PROBLEMS Unknown Problems ALLERGIES Substance Reaction Event Type Date Status Keflex Unknown Drug Allergy Jun, Active ENCOUNTERS Encounter Location Date Diagnosis [facility] HERNANDEZ [address] [id number] [place] [address] July, [facility] [address] [id number] [place] [address] Jun, Acute flank pain R10.9 ; Vaginal dischar ge N89.8 and Paraspinal muscle spasm M62.830 [facility] [address] [id number] [place] [address] Apr, Dental infection K04.7 and Non-intractab le vomiting with nausea, unspecified vomiting type R11.2 [facility] [address] [id number] [place] [address] July, Cystitis N30.90 ; Fluid level behind tym panic membrane of left ear H65.92 ; Impacted cerumen of left ear H61.22 and Dizziness R42 [place] [address] [place] [id number] [address] [place] [phone] Feb, [facility] [address] [id number] [place] [address] Feb, Other fatigue R53.83 [place] [address] [place] [id number] [address] [place] [phone] Jun, [place] [address] [place] [id number] [address] [place] [phone] Jun, [facility] [address] [facility] [id number] [place]ana [place]BIO [id number] Mar, [facility] [id number] [place] S [phone] Mar, [facility] [address] [facility] [id number] [place], [place] [phone] Mar, [facility] [address] [facility] [id number] [address] [place] [address] Jan, [facility] [address] [facility] [id number] [address] [place] [address] Jan, IMMUNIZATIONS No Known Immunizations SOCIAL HISTORY Never Assessed REASON FOR VISIT [facility] [place] PLAN OF CARE VITAL SIGNS MEDICATIONS Medication Instructions Dosage Frequency Start Date End Date Duration S tatus Phenergan 12.5 mg 1 SUPPs by Rectal route every 6 hoursPRN Mar, Active Paxil CR 12.5 mg take 1 tablet (12.5 mg) by oral route once daily Jan, Active dicyclomine 10 mg 1 capsule by Oral ro little shell tribe every 6 [id number] to 60 minutes before meals Mar, Active Zofran 8 mg take 1 tablet (8 mg) by oral route every 8 hoursPRN Jan, Active RESULTS No Results PROCEDURES No Known procedures INSTRUCTIONS MEDICATIONS ADMINISTERED No Known Medications MEDICAL (GENERAL) HISTORY Type Description Date Medical History depession Medical History anxiety Medical History seasonal allergies Medical History B12 deficiency Medical History Bipolar depression Surgical History No know Surgical history Hospitalization History pneumonia 1994,,
== END 2019-02-19 01:47 | disposition home or self-care (01) ==
LOC: EDUNIT# 23:41 → ER 23:43
DX: A08.4 Viral intestinal infection, unspecified (principal); F41.9 Anxiety disorder, unspecified; F32.9 Major depressive disorder, single episode, unspecified; Z88.1 Allergy status to other antibiotic agents
CPT/HCPCS: 36415; 80053; 81000; 84703; 85025; 86141; 96361; 96374; 96375